=== PATIENT | male | born 1935 | race Caucasian/White ===

== ENCOUNTER → 2017-02-26 | Outpatient (CLI) | payer MEDICARE, BC ==
[~2017-02-26] MED LIST: ASPIRIN81 M2; AZITHROMYCIN250 MG PO; CELEBREX; ELIQUIS5 MG PO; INDOCIN SR75 MG PO; INDOCIN50 MG; MEDROL DOSEPAK4 MG DOB; MOBIC PO; OMEGA 3 1,0001 EACH; OSTEOBIFLEX PO; PRILOSEC20 MG PO
--- NOTE | ~2017-02-26 | BD1 ---
[facility] A Service of [facility] & [facility] RADIOLOGY TEXT RESULTS PATIENT: PAUL LOWE LOCATION: [facility] : 33 UNIT #: [id number] AGE: [address]: Phong Burrows MD SEX: M ORDER DR: [id number] [place] [id number] O MR#: [id number] Acc #: [id number] NAME: PAUL LOWE. : 1935 SEX: M STUDY DATE/TIME: 02/26/2017 9:16 UNIT: [facility] ROOM: STUDY DESCRIPTION: BD Dexa Bone Dens 1+ Site Attending Physician: Phong Burrows M.D. Referring Physician: Phong Burrows M.D. Ordering Physician: Phong Burrows M.D. Primary Care Physician: Phong Burrows M.D. MEDICAL IMAGING REPORT This report is preliminary unless electronic signature is present. EXAM DXA scan 02/26/2017 HISTORY Rib fracture. Fall of 2016 after leaning on a truck. Osteopenia. FINDINGS Bone mineral density in the lumbar spine from L1-L4 is 1.281 g/cm2 which is 0.5 standard deviations above the mean when compared to the young adult reference population which is within the range of normal. This is 0.5 standard deviations above the mean when compared to the age-matched population. Bone mineral density in the left femoral neck was 0.876 g/cm2 which is 1.5 standard deviations below the mean when compared to the young adult reference population which is characteristic of osteopenia. This is 0.4 standard deviations below the mean when compared to the age-matched population. Bone mineral density in the right femoral neck was 0.968 g/cm2 which is 0.8 standard deviations below the mean when compared to the young adult reference population which is within the range of normal. This is 0.3 standard deviations above the mean when compared to the age-matched population. IMPRESSION Bone mineral density in the lumbar spine within the range of normal, within the left hip characteristic of osteopenia and within the right hip within the range of normal. Dictated by... Jean Mcgill M.D. THIS IS AN ELECTRONICALLY VERIFIED REPORT Jean Mcgill M.D. at 02/27/2017 8:27 AM KRT/kathleen [facility] A Service of [facility] & [facility] RADIOLOGY TEXT RESULTS PATIENT: PAUL LOWE LOCATION: [facility] : 33 UNIT #: [id number] AGE: [address]: Phong Burrows MD SEX: M ORDER DR: TD: 02/26/2017 11:05 JOB #: [id number] MEDICAL IMAGING REPORT Page 1 of 1
== END | disposition home or self-care (01) ==
LOC: SRAD 08:49
DX: Z13.820 Encounter for screening for osteoporosis (principal); S22.39XA Fracture of one rib, unspecified side, initial encounter for closed fracture; M15.9 Polyosteoarthritis, unspecified
CPT/HCPCS: 77080

== ENCOUNTER → 2017-04-23 | Outpatient (CLI) | payer MEDICARE, BC ==
--- NOTE | ~2017-04-23 | CR210 ---
[facility] A Service of [facility] RADIOLOGY TEXT RESULTS PATIENT: PAUL LOWE LOCATION: [facility] : 33 UNIT #: [id number] AGE: [address]: JOVON GAUTAM MD SEX: M ORDER DR: [id number] [address] [address] [id number] O MR#: [id number] Acc #: [id number] NAME: PAUL LOWE : 1935 SEX: M STUDY DATE/TIME: 04/23/2017 12:32 UNIT: [facility] ROOM: STUDY DESCRIPTION: CR Ribs Uni 2 View W PA Ch Lt Attending Physician: Harish Gautam M.D. Referring Physician: Harish Gautam M.D. Ordering Physician: Harish Gautam M.D. Primary Care Physician: Phong Burrows M.D. MEDICAL IMAGING REPORT This report is preliminary unless electronic signature is present. EXAM Left rib series, 04/23/17. HISTORY Pain. Pain in left side when breathing. Check for pneumonia. Began 3 days ago. TECHNIQUE AP radiograph of the chest is presented with AP and oblique views of the left ribs. COMPARISON Chest radiograph, 07/13/16. FINDINGS No acute-appearing bony abnormality. No rib fracture suggested. Heart ailijg-fg-ehroj limits of normal in size. Note made of a small moderate hiatal hernia similar in appearance to prior study. Lung volumes moderate. No evidence of acute infectious or inflammatory disease, pleural effusion or pneumothorax. No suspicious nodule. Calcified granuloma right lung apex. Dictated by... Umer Chicas M.D. THIS IS AN ELECTRONICALLY VERIFIED REPORT Umer Chicas M.D. at 04/24/2017 5:58 PM DEBBIE/daniel TD: 04/23/2017 15:10 [facility] A Service of [facility] RADIOLOGY TEXT RESULTS PATIENT: PAUL LOWE LOCATION: [facility] : 33 UNIT #: [id number] AGE: [address]: JOVON GAUTAM MD SEX: M ORDER DR: LESLEY #: [id number] MEDICAL IMAGING REPORT Page 1 of 1
== END | disposition home or self-care (01) ==
LOC: SRAD 12:11
DX: R07.81 Pleurodynia (principal)
CPT/HCPCS: 71100

== ENCOUNTER 2017-04-24 20:07 | Emergency (ER) | payer MEDICARE, BC ==
--- NOTE | ~2017-04-24 | EKG ---
PATIENT: PAUL LOWE UNIT #: [id number] Ventricular Rate: 101 BPM Atrial Rate: 101 BPM P-R Interval: 168 ms QRS Duration: 154 ms Q-T Interval: 406 ms QTC Calculation(Bezet): 526 ms P [place]: 38 degrees Calculated R [place]: 129 degrees Calculated T [place]: 20 degrees Diagnosis Line: Sinus tachycardia Diagnosis Line: Right bundle branch block Diagnosis Line: Left posterior fascicular block Diagnosis Line: Bifascicular block Diagnosis Line: Cannot rule out Inferior infarct , age Diagnosis Line: undetermined Diagnosis Line: Abnormal ECG Diagnosis Line: When compared with ECG of 03-JUN-2014 06:19, Diagnosis Line: Premature supraventricular complexes are no longer Diagnosis Line: Present Diagnosis Line: Confirmed by LIANG WOODARD MD ([id number]) on Diagnosis Line: 04/25/2017 7:12:14 PM INTERPRETING MD: VANCE BRODY
--- NOTE | ~2017-04-24 | CT16 ---
[facility] A Service of [facility] & [facility] RADIOLOGY TEXT RESULTS PATIENT: PAUL LOWE LOCATION: [facility] : 33 UNIT #: [id number] AGE: [address]: Umer Leyva MD SEX: M ORDER DR: [id number] [place] [id number] E MR#: [id number] Acc #: [id number] NAME: PAUL LOWE. : 1935 SEX: M STUDY DATE/TIME: 04/24/2017 21:18 UNIT: SED ROOM: STUDY DESCRIPTION: CT Angio Chest for PE Attending Physician: Umer Leyva M.D. Ordering Physician: Umer Leyva M.D. Primary Care Physician: Harish Huber M.D. MEDICAL IMAGING REPORT This report is preliminary unless electronic signature is present. EXAM CTA chest with contrast, pulmonary embolism protocol, 04/24/2017 HISTORY 81-year-old male with weakness, rib pain with deep breathing, diminished appetite. Symptoms present for 2 weeks. COMPARISON PA chest with left rib detail series 04/23/2017. No prior CT chest for comparison at this institution. PROCEDURE 2.0 mm axial images from the thoracic inlet through the upper abdomen after IV contrast administration. 3-D coronal MIP reformatted images were also obtained. This CT exam was performed with one or more of the following radiation dose reduction techniques: automatic exposure control, adjustment of mA and/or kV according to patient size, and iterative reconstruction. FINDINGS Pulmonary emboli are seen within the distal left main pulmonary artery, segmental branches and subsegmental branches of bilateral lower lobes medially. Tiny emboli are also thought to be present within the proximal right middle lobe and within the lingular segment of the left upper lobe. RV/LV ratio is 0.96. Mildly prominent mediastinal lymph nodes are nonspecific but favored to represent benign, reactive changes. There is a large hiatal hernia with passive atelectasis medially within the lung bases. Peripheral ground-glass density in the left lower lobe may represent atelectasis/infiltrate or evolving pulmonary infarct. Benign calcified granuloma in the right apex. Mild centrilobular emphysematous changes. [facility] A Service of [facility] & [facility] RADIOLOGY TEXT RESULTS PATIENT: PAUL LOWE LOCATION: [facility] : 33 UNIT #: [id number] AGE: [address]: Umer Leyva MD SEX: M ORDER DR: Left renal cyst. The remainder of included upper abdominal organs within normal limits. IMPRESSION 1. Segmental and subsegmental pulmonary emboli predominately in the medial bilateral lower lobes, left greater than right, distal left main pulmonary artery, anon-diagnostic smaller segmental emboli within the lingular segment of left upper lobe and right middle lobe. Borderline RV/LV ratio of 0.96. Major pertinent findings discussed with Autumn in the ER prior to the time of this dictation, 04/24/2017 at 09:47 p.m. 2. Probable medial bibasilar atelectasis. There is ground-glass density in the posterior left lower lobe which is nonspecific and may represent atelectasis, pneumonitis or evolving pulmonary infarct. 3. Mild centrilobular emphysema. 4. A few mildly prominent mediastinal lymph nodes are nonspecific but are favored to represent benign reactive findings. 5. Large esophageal hiatal hernia. 6. Left renal cyst. Dictated by... Phoebe Newman M.D. THIS IS AN ELECTRONICALLY VERIFIED REPORT Phoebe Newman M.D. at 04/25/2017 10:06 AM MARCELINA/jayla TD: 04/25/2017 09:02 JOB #: [id number] MEDICAL IMAGING REPORT Page 1 of 1
[~2017-04-24 20:07] MED LIST changes: -CELEBREX; -ELIQUIS5 MG PO; -OMEGA 3 1,0001 EACH
[2017-04-24] MEDS ORDERED: CELEBREX (20:15)
[2017-04-24] MEDS ORDERED: OMEGA 3 1,0001 EACH (20:15)
[2017-04-24 20:43] LABS: BASOPHIL# 0.1 X10e3 (0-0.3); BASOPHIL% 0.8 % (0-2.5); EOSINOPHIL# 0.2 X10e3 (0-0.7); EOSINOPHIL% 1.9 % (0.0-7.0); HEMATOCRIT 40.6 % (38.0-50.0); HEMOGLOBIN 13.6 gm/dL (13.0-16.0); LYMPHOCYTE# 1.8 X10e3 (1.0-3.5); MEAN CELL VOLUME 91.1 FL (83-96); MEAN CORPUSCULAR HEMOGLOBIN 30.5 PG (28-34); MEAN CORPUSCULAR HGB CONC 33.5 g/dL (30-36); MEAN PLATELET VOLUME 8.3 FL (6.5-11.5); MONOCYTE# 0.9 X10e3 (0-1.0); MONOCYTE% 9.2 % (3.0-12.0); NEUTROPHIL# 6.6 X10e3 (1.5-7.1); NEUTROPHIL% 69.1 % (40-75); PLATELET COUNT 190 X10e3 (140-420); RED BLOOD COUNT 4.46 X10e (3.90-5.60); RED CELL DISTRIBUTION WIDTH 14.8 % (11.0-15.5); WHITE BLOOD COUNT 9.5 X10e3 (4.0-10.5)
[2017-04-24 20:46] LABS: INR 1.1; PROTHROMBIN TIME (PATIENT) 12.8 SECONDS (9.5-12.4)
[2017-04-24 20:48] LABS: DIFF IND NO
[2017-04-24 20:50] LABS: URINE SOURCE CLEAN CATCH
[2017-04-24 20:52] LABS: URINE APPEARANCE CLEAR; URINE BILIRUBIN NEG (NEG); URINE BLOOD NEG (NEG); URINE COLOR YELLOW; URINE KETONE NEG (NEG); URINE LEUKOCYTE ESTERASE NEG (NEG); URINE NITRATE NEG (NEG); URINE PROTEIN TRACE (NEG); URINE SPECIFIC GRAVITY 1.025 (1.003-1.035)
[2017-04-24 20:53] LABS: PARTIAL THROMBOPLASTIN TIME 29.3 SECONDS (25.6-38.1)
[2017-04-24 20:54] LABS: ALBUMIN SERUM 3.6 g/dL (3.5-5.0); BILIRUBIN, DIRECT 0.2 mg/dL (0.0-0.2); BILIRUBIN,INDIRECT 0.7 mg/dL (0.0-0.9); BILIRUBIN,TOTAL 0.9 mg/dL (0.2-2.0); BUN/CREATININE RATIO 11.81; CALCIUM SERUM 8.6 mg/dL (8.4-10.2); CREATININE SERUM 1.1 mg/dL (0.6-1.4); GLOM FILT RATE Estimated 61.8 mL/min (>60); POTASSIUM 3.8 mmol/L (3.5-5.1); PROTEIN TOTAL SERUM 7.1 g/dL (6.0-8.3)
[2017-04-24 20:54] LABS: MICRO INDICATED? NO; URINE GLUCOSE 50 MG/DL (NORM)
[2017-04-24 20:56] LABS: POC - CKMB 3.4 ng/mL (0.0-7.9); POC - TROPONIN <0.05 ng/mL (<=0.05)
== END 2017-04-25 01:52 ==
LOC: SED 20:07
PROVIDERS: Emergency Medicine
DX: I26.99 Other pulmonary embolism without acute cor pulmonale (principal); M19.90 Unspecified osteoarthritis, unspecified site; K21.9 Gastro-esophageal reflux disease without esophagitis
CPT/HCPCS: 71275; 80048; 80076; 81003; 82553; 83605; 84484; 85025; 85379; 85610; 85730; 87040; 93005; 96360; 96372; 99284; J1650; Q9967

== ENCOUNTER 2017-04-29 02:36 | Emergency (ER) | payer MEDICARE, BC ==
[~2017-04-29 02:36] MED LIST changes: +CELEBREX; +OMEGA 3 1,0001 EACH
[2017-04-29] MEDS ORDERED: ELIQUIS5 MG PO (02:43)
== END 2017-04-29 03:11 | disposition home or self-care (01) ==
LOC: SED 02:36
DX: R21 Rash and other nonspecific skin eruption (principal); K21.9 Gastro-esophageal reflux disease without esophagitis; Z79.899 Other long term (current) drug therapy
CPT/HCPCS: 99282

== ENCOUNTER 2017-05-16 14:40 | Emergency (ER) | payer MEDICARE, BC ==
--- NOTE | ~2017-05-16 | CT16 ---
[facility]. [facility] A Service of [facility] RADIOLOGY TEXT RESULTS PATIENT: PAUL LOWE LOCATION: SED : 33 UNIT #: [id number] AGE: [address]: Jovan Bond MD SEX: M ORDER DR: [id number] [place] [id number] E MR#: [id number] Acc #: [id number] NAME: PAUL LOWE. : 1935 SEX: M STUDY DATE/TIME: 05/16/2017 15:59 UNIT: SED ROOM: STUDY DESCRIPTION: CT Angio Chest for PE Attending Physician: Jovan Bond M.D. Ordering Physician: Jovan Bond M.D. Primary Care Physician: Harish Huber M.D. MEDICAL IMAGING REPORT This report is preliminary unless electronic signature is present. EXAM Chest CT angiogram with contrast, date of study 05/16/2017 PROCEDURE Axial contrast-enhanced chest CT angiogram with three-dimensional reformats. This CT exam was performed with one or more of the following radiation dose reduction techniques: Automatic exposure control, adjustment of mA and/or kV according to patient size, and iterative reconstruction. COMPARISON Prior chest CT angiogram 04/24/2017. CLINICAL HISTORY Recent diagnosis of pulmonary embolism with persistent dyspnea for 2 weeks. FINDINGS There is a large hiatal hernia. There is no effusion or pneumothorax. Small area of focal opacity at the left lung base persists but left lower lobe infiltrate or atelectasis is mostly resolved since the prior study. Lung aeration has clearly improved. Bolus timing is excellent. The pulmonary arteries are well opacified. There is no convincing evidence of any residual pulmonary embolism. No new embolism is seen. The thoracic aorta remains normal in caliber. Images of the upper abdomen are normal. The bony structures are normal. IMPRESSION 1. Improved pulmonary basilar infiltrates, nearly completely resolved with minimal residual opacity at the left posterior lung base. 2. Resolved pulmonary emboli when compared with the prior study and [facility] Service of [facility] RADIOLOGY TEXT RESULTS PATIENT: PAUL LOWE LOCATION: SED : 33 UNIT #: [id number] AGE: [address]: Jovan Bond MD SEX: M ORDER DR: new emboli are seen. 3. No effusion or pneumothorax. Redemonstrated large hiatal hernia. 4. Thoracic aorta is normal. Dictated by... Artem Zepeda M.D. THIS IS AN ELECTRONICALLY VERIFIED REPORT Artem Zepeda M.D. at 05/17/2017 3:52 PM TEV/psc TD: 05/16/2017 22:46 JOB #: [id number] MEDICAL IMAGING REPORT Page 1 of 1
--- NOTE | ~2017-05-16 | EKG ---
PATIENT: PAUL LOWE UNIT #: [id number] Ventricular Rate: 87 BPM Atrial Rate: 87 BPM P-R Interval: 168 ms QRS Duration: 154 ms Q-T Interval: 422 ms QTC Calculation(Bezet): 507 ms P [place]: 28 degrees Calculated R [place]: 99 degrees Calculated T [place]: 31 degrees Diagnosis Line: Normal sinus rhythm Diagnosis Line: Right bundle branch block Diagnosis Line: Abnormal ECG Diagnosis Line: When compared with ECG of 24-APR-2017 20:36, Diagnosis Line: Left posterior fascicular block is no longer Diagnosis Line: Present Diagnosis Line: Minimal criteria for Inferior infarct are no Diagnosis Line: longer Present Diagnosis Line: Confirmed by LIANG WOODARD MD ([id number]) on Diagnosis Line: 05/17/2017 1:38:57 PM INTERPRETING MD: VANCE BRODY
[~2017-05-16 14:40] MED LIST changes: +ELIQUIS5 MG PO
[2017-05-16 15:16] LABS: BASOPHIL# 0.1 X10e3 (0-0.3); BASOPHIL% 0.6 % (0-2.5); EOSINOPHIL# 0.2 X10e3 (0-0.7); EOSINOPHIL% 2.6 % (0.0-7.0); HEMATOCRIT 41.8 % (38.0-50.0); LYMPHOCYTE# 2.5 X10e3 (1.0-3.5); LYMPHOCYTE% 29.9 % (17.0-45.0); MEAN CELL VOLUME 90.5 FL (83-96); MEAN CORPUSCULAR HEMOGLOBIN 30.2 PG (28-34); MEAN CORPUSCULAR HGB CONC 33.4 g/dL (30-36); MEAN PLATELET VOLUME 8.3 FL (6.5-11.5); MONOCYTE# 0.8 X10e3 (0-1.0); MONOCYTE% 9.3 % (3.0-12.0); NEUTROPHIL# 4.8 X10e3 (1.5-7.1); NEUTROPHIL% 57.6 % (40-75); PLATELET COUNT 216 X10e3 (140-420); RED BLOOD COUNT 4.61 X10e (3.90-5.60); RED CELL DISTRIBUTION WIDTH 14.7 % (11.0-15.5); WHITE BLOOD COUNT 8.3 X10e3 (4.0-10.5)
[2017-05-16 15:20] LABS: INR 1.1; PROTHROMBIN TIME (PATIENT) 12.9 SECONDS (9.5-12.4)
[2017-05-16 15:22] LABS: DIFF IND NO
[2017-05-16 15:27] LABS: PARTIAL THROMBOPLASTIN TIME 32.8 SECONDS (25.6-38.1)
[2017-05-16 15:38] LABS: BILIRUBIN, DIRECT 0.1 mg/dL (0.0-0.2); BILIRUBIN,INDIRECT 0.4 mg/dL (0.0-0.9); BILIRUBIN,TOTAL 0.5 mg/dL (0.2-2.0); CALCIUM SERUM 8.9 mg/dL (8.4-10.2); GLOM FILT RATE Estimated 69.3 mL/min (>60); POTASSIUM 3.9 mmol/L (3.5-5.1); PROTEIN TOTAL SERUM 7.6 g/dL (6.0-8.3)
[2017-05-16 15:54] LABS: POC - CKMB <1.0 ng/mL (0.0-7.9); POC - TROPONIN <0.05 ng/mL (<=0.05)
== END 2017-05-16 16:58 | disposition home or self-care (01) ==
LOC: SED 14:40
PROVIDERS: Emergency Medicine
DX: R09.1 Pleurisy (principal); K21.9 Gastro-esophageal reflux disease without esophagitis; Z79.899 Other long term (current) drug therapy
CPT/HCPCS: 36415; 71275; 80048; 80076; 82553; 84484; 85025; 85610; 85730; 93005; 99285; Q9967

== ENCOUNTER → 2017-06-11 | Outpatient (CLI) | payer MEDICARE, BC ==
--- NOTE | ~2017-06-11 | CT16 ---
[facility] A Service of [facility] & [facility] RADIOLOGY TEXT RESULTS PATIENT: PAUL LOWE LOCATION: [facility] : 33 UNIT #: [id number] AGE: [address]: Tere Moulton APRN SEX: M ORDER DR: [id number] [address] [address] [id number] O MR#: [id number] Acc #: [id number] NAME: PAUL LOWE : 1935 SEX: M STUDY DATE/TIME: 06/11/2017 10:57 UNIT: [facility] ROOM: STUDY DESCRIPTION: CT Angio Chest for PE Attending Physician: Tere Moulton A.P.R.N. Referring Physician: Tere Moulton A.P.R.N. Ordering Physician: Tere Moulton A.P.R.N. Primary Care Physician: Harish Huber M.D. MEDICAL IMAGING REPORT This report is preliminary unless electronic signature is present. EXAM CT angiogram of the chest for pulmonary embolism, 06/11/17 at 10:57 hours HISTORY An 81-year-old man with 1.5 month history of chest pain with inspiration. History of previous pulmonary embolism March 2017 and recent rib fracture [address] angiogram of the chest 05/16/[address] angiographic images were obtained from the thoracic inlet through the upper abdomen. 3-D sagittal and coronal reconstructions were performed. Contrast was Isovue-370, 80 mL IV. Total exam DLP is 826 mGy/cm. This CT exam was performed with one or more of the following radiation dose reduction techniques: automatic exposure control, adjustment of mA and/or kV according to patient size, and iterative reconstruction. FINDINGS Images through the thoracic inlet demonstrate no thyroid mass or adenopathy. Images through the chest demonstrate diagnostic quality opacification of the pulmonary arteries which are normal in caliber. There are no filling defects to suggest recurrent pulmonary emboli. The aorta is normal in caliber. Cardiac chambers and pericardium are unchanged. A large paraesophageal hiatal hernia is unchanged. Lung window images demonstrate calcified granulomatous changes. There is STS. 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 No pleural effusion or pneumothorax. No acute rib fracture is seen. IMPRESSION 1. No evidence of pulmonary embolism. 2. The lungs are clear of acute densities. There is no pleural effusion, pneumothorax or acute rib fracture. 3. Large paraesophageal hiatal hernia is unchanged from 05/16/2017. Dictated by... Sabiha Rondon M.D. THIS IS AN ELECTRONICALLY VERIFIED REPORT Sabiha Rondon M.D. at 06/12/2017 9:22 AM FELIX/rocío TD: 06/11/2017 19:24 JOB #: [id number] MEDICAL IMAGING REPORT Page 1 of 1
== END | disposition home or self-care (01) ==
LOC: SCT 09:43
DX: R07.1 Chest pain on breathing (principal)
CPT/HCPCS: 71275; Q9967

== ENCOUNTER → 2017-07-19 | Outpatient (CLI) | payer MEDICARE, BC | END | disposition home or self-care (01) | LOC: CECH 09:17 | DX: R07.9 Chest pain, unspecified (principal); R06.09 Other forms of dyspnea; G47.30 Sleep apnea, unspecified; I51.89 Other ill-defined heart diseases | CPT/HCPCS: 93306 ==